=== PATIENT | male | born 1945 | race Caucasian/White ===

== ENCOUNTER 2018-04-14 10:00 | Day surgery (SDC) | payer MEDICARE, OTHER ==
[2018-04-09 11:11] LABS: BASOPHILS % (AUTO) 0.5 % (0-1); EOSINOPHILS # (AUTO) 0.4 X10'3 (0-0.9); EOSINOPHILS % (AUTO) 5.1 % (0-6); HEMOGLOBIN 12.6 g/dl (14.0-17.9); LYMPHOCYTES # (AUTO) 1.8 X10'3 (1.1-4.8); LYMPHOCYTES % (AUTO) 21.1 % (21-51); MEAN CORPUSCULAR HEMOGLOBIN 30.7 PG (27.0-31.0); MEAN CORPUSCULAR VOLUME 90.2 FL (78-98); MEAN PLATELET VOLUME 7.1 FL (7.4-10.4); MONOCYTES # (AUTO) 1.2 X10'3 (0-0.9); MONOCYTES % (AUTO) 14.5 % (2-12); NEUTROPHILS % (AUTO) 58.8 % (42-75); PLATELET COUNT 286 X10'3 (140-440); RED CELL DISTRIBUTION WIDTH 13.8 % (11.5-14.5); WHITE BLOOD COUNT 8.5 X10'3 (4.5-11.0)
[2018-04-09 11:21] LABS: PARTIAL THROMBOPLASTIN TIME 31 SECONDS (22-32); PROTHROMBIN TIME 10.6 SECONDS (9.0-12.0)
[2018-04-09 11:22] LABS: ALBUMIN 3.7 G/DL (3.4-5.0); ANION GAP 8 (8-16); BLOOD UREA NITROGEN 21 MG/DL (7-18); BUN/CREATININE RATIO 14.1 (5.4-32.0); CALCIUM 9.1 MG/DL (8.5-10.1); CHLORIDE 99 MMOL/L (99-107); CREATININE 1.49 MG/DL (0.60-1.10); GLUCOSE 92 MG/DL (70-104); POTASSIUM 4.5 MMOL/L (3.5-5.1); SODIUM 131 MMOL/L (135-145); eGFR 47 ML/MIN
[~2018-04-14] VITALS: Ht 170.2 cm; Wt 82.0 kg
[2018-04-14] VITALS (11 sets, daily range): BP systolic 128–177; BP diastolic 64–89
[~2018-04-14 10:00] MED LIST: ACET-1017 PO; AMLO10TA PO; ASPI81TA52 PO; ATEN-169 PO; CARI350T PO; CETI-136 PO; CLOP75TA15 PO; CLOP75TA35 PO; FINA5TAB11 PO; LOSA50TA37 PO; OMEP20CA4 PO; ZOC5T PO
[2018-04-14] MEDS ORDERED: diphenhydrAMINE 25mg capsule PO PRN (10:15)
[2018-04-14] MEDS ORDERED: normal saline 1000ml 1,000 ML IV SCH (10:15)
[2018-04-14] MEDS ORDERED: LORazepam 0.5 MG tablet PO PRN (10:15)
[2018-04-14] MEDS ORDERED: ATOR40TA PO (10:40)
[2018-04-14] MEDS ORDERED: POLY17PO10 PO (10:43)
[2018-04-14] MEDS ORDERED: iohexol 350MG/ML 100ml bottle IV ONE ×2 (11:45→12:06)
[2018-04-14] MEDS ORDERED: LIDOcaine 1% w/EPI 1:100,000 30ml vial (MDV) ONE ×2 (11:45→12:06)
[2018-04-14] MEDS ORDERED: iohexol 350 MG/ML 50ML vial IV ONE (12:06)
[2018-04-14] MEDS ORDERED: heparin 1,000unit/ml 10ml vial 0 ML ONE (12:06)
[2018-04-14] MEDS ORDERED: heparin 1,000 UNITS/NS 500ml 500 ML ONE ×2 (12:06→12:07)
[2018-04-14] MEDS ORDERED: nitroGLYCERIN-Tridil 50MG/D5W 0 ML IV ONE (12:07)
[2018-04-14] MEDS ORDERED: midazolam 2 mg/2 ml injection ONE (12:30)
[2018-04-14] MEDS ORDERED: fentaNYL/PF 50MCG/1 ML 2ML syringe ONE (12:30)
[2018-04-14] MEDS ORDERED: OXAZEpam 15mg capsule PO PRN (15:05)
[2018-04-14] MEDS ORDERED: proCHLORperazine 10 MG/2 ml inj IV PRN (15:05)
[2018-04-14] MEDS ORDERED: acetaminophen 325mg tablet PO PRN (15:05)
[2018-04-14] MEDS ORDERED: HYDROcodone/acetaminophen 10/325mg tab PO PRN (15:05)
[2018-04-14] MEDS ORDERED: HYDROcodone/acetaminophen 5mg/325mg tablet PO PRN (15:05)
[2018-04-14] MEDS ORDERED: ondansetron/PF 4mg/2ml inj IV PRN (15:05)
== END 2018-04-14 17:55 | disposition home or self-care (01) ==
LOC: SSTAY O 10:00
PROVIDERS: ATTEND Internal Medicine Interventional Cardiology
DX: I25.10 Atherosclerotic heart disease of native coronary artery without angina pectoris (principal); I25.82 Chronic total occlusion of coronary artery; Z86.79 Personal history of other diseases of the circulatory system; I12.9 Hypertensive chronic kidney disease with stage 1 through stage 4 chronic kidney disease, or unspecified chronic kidney disease; N18.3 Chronic kidney disease, stage 3 (moderate); J44.9 Chronic obstructive pulmonary disease, unspecified; E78.5 Hyperlipidemia, unspecified; Z79.899 Other long term (current) drug therapy; Z88.8 Allergy status to other drugs, medicaments and biological substances; Z91.048 Other nonmedicinal substance allergy status; Z79.82 Long term (current) use of aspirin
CPT/HCPCS: 36415; 80048; 85025; 85347; 85610; 85730; 93005; 93458; 99152; 99153; A6257; C1769; J1644; J2250; J3010; J3490; J7030; Q0163; Q9967; A4620

== ENCOUNTER 2019-09-07 07:30 | Inpatient (IN) | payer MEDICARE, OTHER ==
[2019-09-01 13:48] LABS: BASOPHILS # (AUTO) 0.1 X10'3 (0-0.2); BASOPHILS % (AUTO) 1.1 % (0-1); EOSINOPHILS # (AUTO) 0.3 X10'3 (0-0.9); EOSINOPHILS % (AUTO) 2.9 % (0-6); LYMPHOCYTES # (AUTO) 1.9 X10'3 (1.1-4.8); LYMPHOCYTES % (AUTO) 21.2 % (21-51); MEAN CORPUSCULAR HEMOGLOBIN 31.1 PG (27.0-31.0); MEAN CORPUSCULAR HGB CONC 33.4 g/dL (33.0-36.5); MEAN PLATELET VOLUME 7.4 FL (7.4-10.4); MONOCYTES # (AUTO) 1.2 X10'3 (0-0.9); MONOCYTES % (AUTO) 13.4 % (2-12); NEUTROPHILS # (AUTO) 5.5 X10'3 (1.8-7.7); NEUTROPHILS % (AUTO) 61.4 % (42-75); PRE OP HEMOGLOBIN 13.4 g/dL (14.0-17.9); PRE OP PLATELET COUNT 279 X10'3 (140-440); RED CELL DISTRIBUTION WIDTH 13.4 % (11.5-14.5)
[2019-09-01 14:00] LABS: PRE OP PROTIME 10.5 SECONDS (9.0-12.0)
[2019-09-01 14:18] LABS: ALBUMIN 4.2 G/DL (3.4-5.0); ALKALINE PHOSPHATASE 107 IU/L (46-116); BLOOD UREA NITROGEN 24 MG/DL (7-18); BUN/CREATININE RATIO 13.3 (5.4-32.0); CALCIUM 9.4 MG/DL (8.5-10.1); CHLORIDE 101 MMOL/L (99-107); PRE OP ALT 25 U/L (30-65); PRE OP ANION GAP 9 (8-16); PRE OP AST 22 U/L (10-37); PRE OP BILIRUB, TOTAL 0.5 MG/DL (0.0-1.0); PRE OP GLUCOSE 97 MG/DL (70-104); PRE OP POTASSIUM 5.1 MMOL/L (3.4-5.1); PRE OP SODIUM 135 MMOL/L (135-145); TOTAL CARBON DIOXIDE 25.3 MMOL/L (24-32); TOTAL PROTEIN 8.3 G/DL (6.4-8.2); eGFR 37 ML/MIN
[2019-09-07] VITALS (16 sets, daily range): BP systolic 123–165; BP diastolic 57–84
[~2019-09-07] VITALS: Ht 170.2 cm; Wt 84.3 kg
[~2019-09-07 07:30] MED LIST changes: +ATOR40TA PO; -CETI-136 PO; -CLOP75TA15 PO; -CLOP75TA35 PO; +DOCUMENT DATE & TIME OF BETA-BLOCKER PO ONE; +HYDROmorphone 1 mg/ml syringe IV PRN; +HYDROmorphone inj. 0.5 MG/0.5 ML DISP.SYRIN IV PRN; -LOSA50TA37 PO; +LOSA50TA64 PO; +POLY17PO10 PO; -ZOC5T PO; +acetaminophen 325mg tablet PO ONE; +acetaminophen 325mg tablet PO PRN; +bisacodyl 10mg suppository rectal RC PRN; +cefazolin/dext.iso 2gm/50ml 100 ML IV ONE; +celeCOXIB 100mg capsule PO ONE; +diphenhydrAMINE 25mg capsule PO PRN; +famotidine 20mg tablet PO ONE; +gabapentin 300mg capsule PO ONE; +magnesium hydroxide 30ml (MOM) UD suspension PO PRN; +metoclopramide 5 mg/ml inj IV ONE; +ondansetron/PF 4mg/2ml inj IV PRN; +oxyCODONE SR 10mg (sust. release) tab -2 tabs (20mg) PO ONE; +polyethylene glycol 3350 17gm powd pack PO PRN; +ringers solution, lacted 1,000 ML IV SCH; +tranexamic acid inj. 1,000 MG in normal saline 100 ML IV ONE; +vancomycin inj 1,500 MG in normal saline 300ml IV soln IV ONE
[2019-09-07] MEDS ORDERED: vancomycin 1,000mg inj ONE (11:44)
[2019-09-07] MEDS ORDERED: cloNIDine hcl/PF 100mcg/ml inj ONE (11:44)
[2019-09-07] MEDS ORDERED: ketorolac trometh. 30mg/ml inj. ONE (11:44)
[2019-09-07] MEDS ORDERED: epiNEPHrine 1 mg/ml inj ONE (11:44)
[2019-09-07] MEDS ORDERED: ROPIVAcaine 0.5% (5mg/ml) 30ml vial ONE ×2 (11:45→14:26)
[2019-09-07] MEDS ORDERED: tetracaine 1% (10mg/ml) pres. free inj. ONE (12:59)
[2019-09-07] MEDS ORDERED: MIDAZolam 1mg/ml 10ml vial ONE (13:07)
[2019-09-07] MEDS ORDERED: fentaNYL/PF 50MCG/1 ML 2ML syringe ONE (13:07)
[2019-09-07] MEDS ORDERED: ringers solution, lacted 1,000 ML IV SCH (13:31)
[2019-09-07] MEDS ORDERED: morphine 4 MG/ML inj SYRINge IV PRN ×2 (13:35)
[2019-09-07] MEDS ORDERED: ondansetron/PF 4mg/2ml inj IV PRN (13:35)
[2019-09-07] MEDS ORDERED: enalaprilat dihydrate 2.5mg/2ml vial IV PRN (13:35)
[2019-09-07] MEDS ORDERED: fentaNYL/PF 50MCG/1 ML 2ML syringe IV PRN ×2 (13:35)
[2019-09-07] MEDS ORDERED: hydrALAZINE 20mg/ml inj. IV PRN (13:35)
--- NOTE | 2019-09-07 15:20 | NUR ---
ADMITTED TO PACU FROM OR ACCOMPANIED BY ANESTHESIA. INTIAL PHYSICAL ASSESSMENT DONE AND RECORDED. REPORT RECEIVED FROM ANESTHESIA.
[2019-09-07] MEDS: ROPIVAcaine 0.2%/PF PAIN PUMP 550 ML ADDCANAL SCH ×2 (16:02→19:28)
--- NOTE | 2019-09-07 16:30 | NUR ---
PACU DISCHARGE CRITERIA MET, REPORT GIVEN TO FLOOR. DENIES PAIN OR DISCOMFORT, TRANSFERRED TO ROOM IN STABLE GOOD CONDITION.
[2019-09-07] MEDS ORDERED: tranexamic acid inj. 840 MG in normal saline 100ml IV soln 100 ML IV ONE (19:00)
[2019-09-07] MEDS: oxyCODONE/APAP 10/325mg tablet PO PRN (19:24)
[2019-09-07] MEDS: sennosides 8.6mg tablet PO SCH (20:20)
[2019-09-07] MEDS: gabapentin 300mg capsule PO SCH (20:20)
[2019-09-07] MEDS: ascorbic acid 500mg tablet PO SCH (20:20)
[2019-09-07] MEDS: celeCOXIB 100mg capsule PO SCH (20:20)
[2019-09-07] MEDS: atorvastatin 20mg tablet PO SCH (20:21)
[2019-09-07] MEDS: losartan 50mg tablet PO SCH (20:21)
[2019-09-07] MEDS: cefazolin/dext.iso 2gm/100ml 100 ML IV SCH (22:43)
[2019-09-07] MEDS: potassium cl 20mEq in 1/2 NS 1,000 ML IV SCH (22:51)
[2019-09-08] MEDS: cefazolin/dext.iso 2gm/100ml 100 ML IV SCH
[2019-09-08] MEDS: potassium cl 20mEq in 1/2 NS 1,000 ML IV SCH ×3 (00:23→12:20)
[2019-09-08 02:00] VITALS: BP 162/84
[2019-09-08] MEDS: oxyCODONE/APAP 10/325mg tablet PO PRN ×2 (02:46→19:55)
[2019-09-08] MEDS: ROPIVAcaine 0.2%/PF PAIN PUMP 550 ML ADDCANAL SCH (02:55)
[2019-09-08 06:00] VITALS: BP 160/76
[2019-09-08 06:02] LABS: BASOPHILS # (AUTO) 0.1 X10'3 (0-0.2); BASOPHILS % (AUTO) 0.7 % (0-1); EOSINOPHILS # (AUTO) 0.1 X10'3 (0-0.9); HEMOGLOBIN 12.4 g/dl (14.0-17.9); LYMPHOCYTES # (AUTO) 0.9 X10'3 (1.1-4.8); LYMPHOCYTES % (AUTO) 8.7 % (21-51); MEAN CORPUSCULAR HEMOGLOBIN 31.6 PG (27.0-31.0); MEAN CORPUSCULAR HGB CONC 34.3 g/dL (33.0-36.5); MEAN CORPUSCULAR VOLUME 92.2 FL (78-98); MONOCYTES # (AUTO) 1.1 X10'3 (0-0.9); MONOCYTES % (AUTO) 10.7 % (2-12); NEUTROPHILS # (AUTO) 7.8 X10'3 (1.8-7.7); NEUTROPHILS % (AUTO) 78.9 % (42-75); PLATELET COUNT 246 X10'3 (140-440); RED BLOOD COUNT 3.91 X10'6 (4.70-6.10); RED CELL DISTRIBUTION WIDTH 13.3 % (11.5-14.5); WHITE BLOOD COUNT 9.9 X10'3 (4.5-11.0)
--- NOTE | 2019-09-08 06:05 | NUR ---
Patient in room ORTHO 4011. I have received report from Marcela and had the opportunity to ask questions and assume patient care.
[2019-09-08 06:08] LABS: ANION GAP 10 (8-16); CHLORIDE 101 MMOL/L (99-107); POTASSIUM 4.7 MMOL/L (3.5-5.1); SODIUM 132 MMOL/L (135-145); TOTAL CARBON DIOXIDE 20.8 MMOL/L (24-32)
--- NOTE | 2019-09-08 06:16 | NUR ---
REPORT GIVEN TO JOSE CORREIA.
[2019-09-08] MEDS ORDERED: cefazolin/dext.iso 2gm/50ml 50 ML IV SCH (07:00)
[2019-09-08] MEDS: pantoprazole 40mg Tablet.DR PO SCH (07:23)
[2019-09-08] MEDS: finasteride 5mg tablet PO SCH (07:24)
[2019-09-08] MEDS: gabapentin 300mg capsule PO SCH ×3 (07:24→20:19)
[2019-09-08] MEDS: multivitamins, therapeutics tablet PO SCH (07:24)
[2019-09-08] MEDS: ascorbic acid 500mg tablet PO SCH ×2 (07:25→20:20)
[2019-09-08] MEDS: atenolol 50mg tablet PO SCH (07:26)
[2019-09-08] MEDS: amLODIPine 5mg tablet PO SCH (07:42)
[2019-09-08] MEDS: aspirin 325mg tablet PO SCH (07:45)
--- NOTE | 2019-09-08 08:10 | NUR ---
Problems reprioritized. Patient report given, questions answered & plan of care reviewed with Marcela.
--- NOTE | 2019-09-08 08:56 | NUR ---
Student Medication Administration: For this medication-pass time frame, all medication were reviewed, dispensed, administered and documented per hospital policy by Dorene ZEPEDA [facility].
[2019-09-08 10:00] VITALS: BP 168/89
--- NOTE | 2019-09-08 10:00 | NUR ---
Spoke with orthopaedic USER EXPERIENCE DESIGNER, bladder scan pt, if over 350 mLs, may straight cath, if necessary to straight cath twice, may replace mejias Addendum: 09/08/19 at 1557 by Jihan Montejo RN Amended: Links added.
--- NOTE | 2019-09-08 11:43 | NUR ---
Student documentation: I have reviewed all interventions, assessments performed and documented by Michelle Jerry. Student Medication Administration: For this medication-pass time frame, all medication were reviewed, dispensed, administered and documented per hospital policy by Michelle Jerry.
[2019-09-08 14:00] VITALS: BP 152/66
--- NOTE | 2019-09-08 16:58 | NUR ---
Joint replacement consult: Pt seen by RD for written/verbal high protein ed w/ RD contact information provided. Pt reports dry mouth and unable to tolerate foods that aren't moist. Pt agrees to gravy on the side, cottage cheese w/ peaches TIMADDYM, and chicken salad w/ extra gonzalez packet on the side at dinner tonight. Addendum: 09/08/19 at [address] Amended: Links added.
[2019-09-08 18:00] VITALS: BP 165/74
[2019-09-08] MEDS: losartan 50mg tablet PO SCH (20:19)
[2019-09-08] MEDS: sennosides 8.6mg tablet PO SCH (20:20)
[2019-09-08] MEDS: atorvastatin 20mg tablet PO SCH (20:21)
[2019-09-08 22:28] VITALS: BP 160/72
--- NOTE | 2019-09-08 22:37 | NUR ---
REPORT REC'D FROM JOSE CORREIA. PT C/O GAS BLOATING, NOT ABLE TO PASS GAS. HX OF CONSTIPATION AT HOME. MD CABA NOTIFIED, PT WANTS SIMETHICONE. MD CABA STATES THAT UNLESS HE IS PASSING GAS, NO NEW ORDERS. GAVE MIRALAX, AND WALKED 300FT WITH FWW. PT RESISTANT TO REPOSITIONING ON LEFT SIDE FOR EASE OF PASSING GAS. REFUSES TO TURN. PT IS ABLE TO URINATE, USING URINAL, 250ML OUTPUT X 2 PRIOR TO NOW.
[2019-09-09] VITALS (7 sets, daily range): BP systolic 134–157; BP diastolic 64–70
--- NOTE | 2019-09-09 05:07 | NUR ---
PT REFUSES TO USE CALL LIGHT FOR ASSISTANCE. REPOSITIONS SELF ON LEFT SIDE. USED URINAL X3 WITHOUT CALLING. VERY "INDEPENDENT". STOIC.
--- NOTE | 2019-09-09 05:18 | NUR ---
NEW ORDER FROM DR. CABA, PT IS TO REMAIN ON CLEAR LIQUID DIET UNTIL HE HAS BOWEL MOVEMENT. MIRALAX GIVEN, ENCOURAGED WALKING, AND LEFT SIDE-LYING POSITION. PT BS HYPOACTIVE.
[2019-09-09 06:18] LABS: BASOPHILS # (AUTO) 0.1 X10'3 (0-0.2); BASOPHILS % (AUTO) 0.5 % (0-1); EOSINOPHILS # (AUTO) 0.3 X10'3 (0-0.9); EOSINOPHILS % (AUTO) 2.3 % (0-6); HEMATOCRIT 32.3 % (42.0-52.0); HEMOGLOBIN 10.9 g/dl (14.0-17.9); LYMPHOCYTES # (AUTO) 1.2 X10'3 (1.1-4.8); LYMPHOCYTES % (AUTO) 11.4 % (21-51); MEAN CORPUSCULAR HEMOGLOBIN 31.4 PG (27.0-31.0); MEAN CORPUSCULAR HGB CONC 33.8 g/dL (33.0-36.5); MEAN CORPUSCULAR VOLUME 92.9 FL (78-98); MEAN PLATELET VOLUME 7.3 FL (7.4-10.4); MONOCYTES # (AUTO) 1.5 X10'3 (0-0.9); MONOCYTES % (AUTO) 13.6 % (2-12); NEUTROPHILS # (AUTO) 7.8 X10'3 (1.8-7.7); NEUTROPHILS % (AUTO) 72.2 % (42-75); PLATELET COUNT 236 X10'3 (140-440); RED BLOOD COUNT 3.47 X10'6 (4.70-6.10); RED CELL DISTRIBUTION WIDTH 13.4 % (11.5-14.5); WHITE BLOOD COUNT 10.8 X10'3 (4.5-11.0)
--- NOTE | 2019-09-09 06:40 | NUR ---
Patient in room ORTHO 4011. I have received report from Marcela and had the opportunity to ask questions and assume patient care.
--- NOTE | 2019-09-09 07:03 | NUR ---
REPORT GIVEN TO JOSE CORREIA.
[2019-09-09] MEDS: celeCOXIB 100mg capsule PO SCH ×2 (07:28→19:35)
[2019-09-09] MEDS: finasteride 5mg tablet PO SCH (07:28)
[2019-09-09] MEDS: amLODIPine 5mg tablet PO SCH (07:28)
[2019-09-09] MEDS: gabapentin 300mg capsule PO SCH ×3 (07:28→19:37)
[2019-09-09] MEDS: pantoprazole 40mg Tablet.DR PO SCH (07:28)
[2019-09-09] MEDS: multivitamins, therapeutics tablet PO SCH (07:29)
[2019-09-09] MEDS: atenolol 50mg tablet PO SCH (07:29)
[2019-09-09] MEDS: ascorbic acid 500mg tablet PO SCH ×2 (07:29→19:35)
[2019-09-09] MEDS: aspirin 325mg tablet PO SCH (07:31)
[2019-09-09] MEDS: oxyCODONE/APAP 10/325mg tablet PO PRN ×2 (08:35→15:38)
[2019-09-09] MEDS: ROPIVAcaine 0.2%/PF PAIN PUMP 550 ML ADDCANAL SCH (14:30)
--- NOTE | 2019-09-09 19:00 | NUR ---
Patient in room ORTHO 4011. I have received report from Jihan GARCIA and had the opportunity to ask questions and assume patient care.
[2019-09-09] MEDS: losartan 50mg tablet PO SCH (19:36)
[2019-09-09] MEDS: atorvastatin 20mg tablet PO SCH (19:37)
[2019-09-09] MEDS: sennosides 8.6mg tablet PO SCH (21:00)
[2019-09-10] MEDS: oxyCODONE/APAP 10/325mg tablet PO PRN ×3 (03:28→20:34)
[2019-09-10 06:00] VITALS: BP 170/81
--- NOTE | 2019-09-10 06:05 | NUR ---
Patient in room ORTHO 4011. I have received report from Alfonso Mitchell and had the opportunity to ask questions and assume patient care.
[2019-09-10 06:38] LABS: BASOPHILS % (AUTO) 0.4 % (0-1); EOSINOPHILS # (AUTO) 0.2 X10'3 (0-0.9); EOSINOPHILS % (AUTO) 1.8 % (0-6); HEMATOCRIT 33.7 % (42.0-52.0); HEMOGLOBIN 11.4 g/dl (14.0-17.9); LYMPHOCYTES # (AUTO) 0.4 X10'3 (1.1-4.8); LYMPHOCYTES % (AUTO) 4.2 % (21-51); MEAN CORPUSCULAR HEMOGLOBIN 31.5 PG (27.0-31.0); MEAN CORPUSCULAR HGB CONC 33.9 g/dL (33.0-36.5); MEAN CORPUSCULAR VOLUME 92.8 FL (78-98); MEAN PLATELET VOLUME 7.3 FL (7.4-10.4); MONOCYTES # (AUTO) 1.3 X10'3 (0-0.9); MONOCYTES % (AUTO) 12.8 % (2-12); NEUTROPHILS # (AUTO) 8.3 X10'3 (1.8-7.7); NEUTROPHILS % (AUTO) 80.8 % (42-75); PLATELET COUNT 246 X10'3 (140-440); RED BLOOD COUNT 3.63 X10'6 (4.70-6.10); RED CELL DISTRIBUTION WIDTH 13.4 % (11.5-14.5); WHITE BLOOD COUNT 10.3 X10'3 (4.5-11.0)
[2019-09-10] MEDS: pantoprazole 40mg Tablet.DR PO SCH (07:52)
[2019-09-10] MEDS: finasteride 5mg tablet PO SCH (07:53)
[2019-09-10] MEDS: gabapentin 300mg capsule PO SCH ×3 (07:53→20:33)
[2019-09-10] MEDS: celeCOXIB 100mg capsule PO SCH ×2 (07:53→20:33)
[2019-09-10] MEDS: amLODIPine 5mg tablet PO SCH (07:53)
[2019-09-10] MEDS: ascorbic acid 500mg tablet PO SCH ×2 (07:54→20:32)
[2019-09-10] MEDS: aspirin 325mg tablet PO SCH (07:54)
[2019-09-10] MEDS: atenolol 50mg tablet PO SCH (07:54)
[2019-09-10] MEDS: multivitamins, therapeutics tablet PO SCH (07:54)
[2019-09-10] MEDS: ROPIVAcaine 0.2%/PF PAIN PUMP 550 ML ADDCANAL SCH ×2 (08:00→19:00)
[2019-09-10 09:53] VITALS: BP 159/74
--- NOTE | 2019-09-10 10:30 | NUR ---
Pt medicare compliance auditor reported pt attempted to reposition himself on the toilet and began to slide off. Pt did not fall but put weight on the operative knee sideways, but was able to steady himself as witnessed by patient medicare compliance auditor. Pt reported to foam charger that he went down on his operative knee. roll mechanic was not present. Phoned MD, no answer, left generic message.
--- NOTE | 2019-09-10 12:10 | NUR ---
Reviewed discharge instructions with pt. Pt wishes to work with physical therapy one more time this afternoon prior to discharging.
--- NOTE | 2019-09-10 15:19 | NUR ---
O2 Sat at rest on room air:_86__% If below 89%: Recovery O2 Sat at rest on __1_LPM:__87_%:__88_% via nasal cannula (mask/nasal cannula, etc..) No further documentation is necessary. If O2 Sat did not drop below 89% on room air,ambulate patient on room air. O2 Sat while ambulating on room air:___% Recovery O2 Sat while ambulating on ___LPM:___% No further documentation is necessary. If patient does not drop below 89% while ambulating, he/she does not qualify for home O2.
--- NOTE | 2019-09-10 15:49 | NUR ---
Spoke with MD, advised of low O2 sats of 86% sitting on side of the bed, advised of reddish/brown tinged small mucous pt had shown he coughed up. Pt wishes to stay.
--- NOTE | 2019-09-10 17:00 | NUR ---
Patient in room ORTHO 4011. I have received report from BREN GARCIA and had the opportunity to ask questions and assume patient care.
--- NOTE | 2019-09-10 17:12 | NUR ---
Problems reprioritized. Patient report given, questions answered & plan of care reviewed with Adrien.
--- NOTE | 2019-09-10 17:42 | NUR ---
BP ELEVATED 178/87, PATIENT REPORT PAIN 5/10, DECLINES PAIN MEDICINE AT THIS TIME. WILL RECHECK AGAIN.
[2019-09-10 18:00] VITALS: BP 178/87
--- NOTE | 2019-09-10 18:10 | NUR ---
Problems reprioritized. Patient report given, questions answered & plan of care reviewed with DERRICK GARCIA.
[2019-09-10] MEDS: losartan 50mg tablet PO SCH (20:32)
[2019-09-10] MEDS: atorvastatin 20mg tablet PO SCH (20:32)
[2019-09-10] MEDS: sennosides 8.6mg tablet PO SCH (20:33)
[2019-09-10 22:27] VITALS: BP 181/84
[2019-09-11 06:00] VITALS: BP 169/79
--- NOTE | 2019-09-11 06:39 | NUR ---
reported to days. anticipate patient discharge today
[2019-09-11] MEDS: celeCOXIB 100mg capsule PO SCH (07:00)
[2019-09-11] MEDS: pantoprazole 40mg Tablet.DR PO SCH (07:00)
[2019-09-11] MEDS: amLODIPine 5mg tablet PO SCH (07:00)
[2019-09-11] MEDS: gabapentin 300mg capsule PO SCH ×2 (07:00→12:44)
[2019-09-11] MEDS: finasteride 5mg tablet PO SCH (07:01)
[2019-09-11] MEDS: atenolol 50mg tablet PO SCH (07:02)
[2019-09-11] MEDS: multivitamins, therapeutics tablet PO SCH (07:02)
[2019-09-11] MEDS: aspirin 325mg tablet PO SCH (07:02)
[2019-09-11] MEDS: ascorbic acid 500mg tablet PO SCH (07:02)
[2019-09-11 10:00] VITALS: BP 157/56
[2019-09-11] MEDS: oxyCODONE/APAP 10/325mg tablet PO PRN (13:31)
[2019-09-11] MEDS: ROPIVAcaine 0.2%/PF PAIN PUMP 550 ML ADDCANAL SCH (14:30)
--- NOTE | 2019-09-11 14:40 | NUR ---
PATIENT DISCHARGED HOME SAFELY WITH FAMILY, ALL BELONGING IN POSSESSION, PATIENT AND FAMILY VERBALIZE UNDERSTANDING OF DISCHARGE INSTRUCTIONS, MEDICATIONS WERE RETURNED TO PATIENT, AND PATIENT PICKED UP WALLET FROM [facility]
--- NOTE | 2019-09-11 14:40 | NUR ---
Student documentation: I have reviewed and agree with all interventions, assessments performed and documented by []. Student Medication Administration: For this medication-pass time frame, all medication were reviewed, dispensed, administered and documented per hospital policy by NADJA BRITTON.
== END 2019-09-11 14:50 | disposition home or self-care (01) | DRG 470 ==
LOC: PAS IN 09:46 → EDSTATUS 11:00 → ORTHO 4S 16:31
PROVIDERS: ADMIT Orthopaedic Surgery; ATTEND Orthopaedic Surgery
PROC: 3E0T3BZ Introduction of Anesthetic Agent into Peripheral Nerves and Plexi, Percutaneous Approach (ICD-10-PCS; 2019-09-07)
PROC: 0SRC069 Replacement of Right Knee Joint with Oxidized Zirconium on Polyethylene Synthetic Substitute, Cemented, Open Approach (ICD-10-PCS; principal; 2019-09-07 12:40)
PROC: 5A09357 Assistance with Respiratory Ventilation, Less than 24 Consecutive Hours, Continuous Positive Airway Pressure (ICD-10-PCS; 2019-09-08)
PROC: 5A09357 Assistance with Respiratory Ventilation, Less than 24 Consecutive Hours, Continuous Positive Airway Pressure (ICD-10-PCS; 2019-09-09)
PROC: 5A09357 Assistance with Respiratory Ventilation, Less than 24 Consecutive Hours, Continuous Positive Airway Pressure (ICD-10-PCS; 2019-09-10)
DX: M17.11 Unilateral primary osteoarthritis, right knee (principal); D62 Acute posthemorrhagic anemia; E78.5 Hyperlipidemia, unspecified; I10 Essential (primary) hypertension; G47.30 Sleep apnea, unspecified; Z87.891 Personal history of nicotine dependence; Z88.2 Allergy status to sulfonamides; Z82.49 Family history of ischemic heart disease and other diseases of the circulatory system; Z79.899 Other long term (current) drug therapy
CPT/HCPCS: 36415; 71046; 73560; 80051; 80053; 82948; 85025; 85610; 85730; 86885; 86900; 86901; 87081; 97110; 97112; 97116; 97162; 97530; A4215; A6454; A7000; C1713; C1758; C1776; G0378; J0171; J0735; J1170; J1885; J2250; J2765; J2795; J3010; J3370; J3480; J7120

== ENCOUNTER 2020-04-01 19:54 | Emergency (ER) | payer OTHER, MEDICARE ==
[~2020-04-01] VITALS: Ht 170.2 cm; Wt 81.3 kg
[~2020-04-01 19:54] MED LIST changes: -ASPI81TA52 PO; -DOCUMENT DATE & TIME OF BETA-BLOCKER PO ONE; -HYDROmorphone 1 mg/ml syringe IV PRN; -HYDROmorphone inj. 0.5 MG/0.5 ML DISP.SYRIN IV PRN; -acetaminophen 325mg tablet PO ONE; -acetaminophen 325mg tablet PO PRN; -bisacodyl 10mg suppository rectal RC PRN; -cefazolin/dext.iso 2gm/50ml 100 ML IV ONE; -celeCOXIB 100mg capsule PO ONE; -diphenhydrAMINE 25mg capsule PO PRN; -famotidine 20mg tablet PO ONE; -gabapentin 300mg capsule PO ONE; -magnesium hydroxide 30ml (MOM) UD suspension PO PRN; -metoclopramide 5 mg/ml inj IV ONE; -ondansetron/PF 4mg/2ml inj IV PRN; -oxyCODONE SR 10mg (sust. release) tab -2 tabs (20mg) PO ONE; -polyethylene glycol 3350 17gm powd pack PO PRN; -ringers solution, lacted 1,000 ML IV SCH; -tranexamic acid inj. 1,000 MG in normal saline 100 ML IV ONE; -vancomycin inj 1,500 MG in normal saline 300ml IV soln IV ONE
--- NOTE | 2020-04-01 20:56 | NUR ---
TRAUMA CLEARED BY [facility]
[2020-04-01 21:10] VITALS: BP 152/78
== END 2020-04-01 21:08 | disposition home or self-care (01) ==
LOC: ER 19:56
DX: S22.31XA Fracture of one rib, right side, initial encounter for closed fracture (principal); I10 Essential (primary) hypertension; K21.9 Gastro-esophageal reflux disease without esophagitis; G89.29 Other chronic pain; Z98.890 Other specified postprocedural states; Z88.2 Allergy status to sulfonamides; Z88.1 Allergy status to other antibiotic agents; Z79.899 Other long term (current) drug therapy; W18.30XA Fall on same level, unspecified, initial encounter; Y93.01 Activity, walking, marching and hiking; Y92.89 Other specified places as the place of occurrence of the external cause; Y99.9 Unspecified external cause status
CPT/HCPCS: 71250; 99285

== ENCOUNTER 2023-01-11 12:16 | Emergency (ER) | payer OTHER, MEDICARE ==
[~2023-01-11] VITALS: Ht 170.2 cm; Wt 86.4 kg
[2023-01-11 12:25] VITALS: BP 159/81
== END 2023-01-11 16:04 | disposition left against medical advice (07) ==
LOC: ER 12:17
DX: R04.0 Epistaxis (principal); H91.09 Ototoxic hearing loss, unspecified ear; Z53.21 Procedure and treatment not carried out due to patient leaving prior to being seen by health care provider

== ENCOUNTER 2025-04-28 14:13 | Outpatient (CLI) | payer MEDICARE, OTHER ==
--- NOTE | 2025-04-29 05:23 | RADIOLOGY REPORT ---
CLINICAL INDICATION: PAIN IN LEFT SHOULDER COMPARISON: None TECHNIQUE: Multiplanar, multisequence MRI of the left shoulder was performed without contrast. Contrast: None FINDINGS: Glenohumeral joint: There is no fracture or bone marrow edema. Alignment is maintained. Significan t articular cartilage loss in the humeral head and glenoid with subchondral cysts on both sides of th e joint. There is glenohumeral joint effusion. Acromioclavicular joint: The acromioclavicular joint is narrow the capsular hypertrophy. There is t ype 2 acromion. Rotator cuff and bursae: There is supraspinatus tendinosis and a high-grade articular surface tear me asuring 1.3 cm. Please note that the tear is essentially nearly full-thickness with only a few of the overlying bursal surface fibers remaining. There is infraspinatus tendinosis and partial-thickness a rticular surface tear. Severe subscapularis tendinosis and interstitial tear near the lesser tuberosi ty insertion. Teres minor tendon is intact. There is no regional muscle atrophy. There is fluid in the subacromial subdeltoid bursa. Biceps tendon and glenoid labrum: Long head biceps tendinosis. Fluid distending the tendon sheath. Diffuse degeneration and chronic tear of the visualized glenoid labrum. IMPRESSION: 1. Severe subscapularis tendinosis and high-grade partial-thickness articular sided tear. The tear i s nearly full-thickness. 2. Infraspinatus tendinosis and partial-thickness articular surface tear. 3. Subscapularis tendinosis and interstitial tear. 4. Long head biceps tendinosis and tenosynovitis. 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
== END 2025-04-28 23:59 | disposition home or self-care (01) ==
LOC: MRI02 14:13
PROVIDERS: ATTEND Orthopaedic Surgery
DX: S46.012A Strain of muscle(s) and tendon(s) of the rotator cuff of left shoulder, initial encounter (principal); S46.011A Strain of muscle(s) and tendon(s) of the rotator cuff of right shoulder, initial encounter; M19.012 Primary osteoarthritis, left shoulder; M25.512 Pain in left shoulder; M25.511 Pain in right shoulder; X58.XXXA Exposure to other specified factors, initial encounter; Y93.89 Activity, other specified; Y92.89 Other specified places as the place of occurrence of the external cause; Y99.8 Other external cause status
CPT/HCPCS: 73221